=== PATIENT | male | born 1960 | race Caucasian/White ===

== ENCOUNTER → 2019-02-14 10:42 | Outpatient (CLI) | payer OTHER, SELFPAY ==
[2019-02-14 12:09] LABS: Vitamin B12 355 pg/mL (211-911)
[2019-02-14 12:11] LABS: Thyroid Stim Hormone (TSH) 1.91 uIU/mL (0.358-3.74)
[2019-02-16 07:07] LABS: Ceruloplasmin 17.2 mg/dL (16.0-31.0)
[2019-02-17 10:59] LABS: Copper, Serum or Plasma 74 ug/dL (72-166)
== END ==
PROVIDERS: Family Provider Internal Medicine; PCP Internal Medicine; Referring Provider Psychiatry & Neurology Neurology; Visit Provider Psychiatry & Neurology Neurology
DX: R25.1 Tremor, unspecified (principal)
CPT/HCPCS: 36415; 82390; 82525; 82607; 84443